=== PATIENT | female | born 1955 | race Caucasian/White ===

== ENCOUNTER → 2024-03-22 12:03 | Outpatient (REF) | payer MEDICARE, OTHER, SELFPAY | LOC: PAVMRI 12:03 | PROVIDERS: ATTENDING PHYSICIAN Orthopaedic Surgery | DX: M25.561 Pain in right knee (principal) | CPT/HCPCS: 73721 ==

== ENCOUNTER 2024-08-01 07:02 | Inpatient (IN) | payer MEDICARE, OTHER, SELFPAY ==
[2024-07-10 13:32] LABS: Hematocrit 37.4 % (37.0-47.0); Hemoglobin 12.9 g/dL (12.0-16.0); Mean Corp Hgb Conc. 34.5 g/dL (33.0-37.0); Mean Corpuscular Volume 92.8 fL (81.0-99.0); Mean Platelet Volume 10.3 fL (7.4-10.4); Platelet Count 243 10^3/uL (130-400); Red Blood Cell Count 4.03 10^6/uL (4.20-5.40); Red Cell Dist. Width 12.7 % (11.5-14.5)
[2024-07-10 13:54] VITALS: BMI 31.6
[2024-07-10 13:54] LABS: ALT (SGPT) 25 U/L (0-35); AST (SGOT) 28 U/L (14-36); Albumin 4.2 g/dl (3.5-5.0); Alkaline Phosphatase 63 U/L (38-126); Blood Urea Nitrogen 23 mg/dl (7-17); Carbon Dioxide 27 mmol/L (22-30); Chloride 104 mmol/L (98-107); Glucose 96 mg/dl (70-99); Potassium 4.7 mmol/L (3.5-5.1); Sodium 139 mmol/L (135-145); Total Bilirubin 0.3 mg/dl (0.2-1.3); eGFR > 60.00
[2024-07-10 14:10] LABS: Glycohemoglobin (HgbA1c) 5.7 % (4.0-5.6)
--- NOTE | 2024-07-27 13:26 | VNURNOTE ---
Patient is scheduled for an elective R TKR on 08/01/[address] Muñiz. Spoke with patient prior to surgery via telephone. Introduced role of [facility] Liaison.
Patient states she will be obtaining rolling walker in hospital. She confirms she has a raised toilet seat. She lives alone. Her son and daughter will assist at home for a few days post-op.
Difficult to complete entire assessment as patient was at the [facility].
PCP is Dr Jerardo Dhaliwal.
Discussed orthopedic program and post surgical plans. Reviewed anticipated length of stay and that goal is for her to return home at discharge. Patient will receive [facility] nursing, PT, OT in the home, this was confirmed with Juliette Malhotra at [facility].
Patient is in agreement with plan. Referral placed in [facility].
Plan: [facility], outpt PT TBD
[2024-07-30 12:16] VITALS: BMI 31.6
[2024-08-01] VITALS (15 sets, daily range): BP systolic 107–135; BP diastolic 56–76; PULSE 78; O2SAT 96
[2024-08-01] MEDS: NORMOSOL-R/PLASMALYTE-A 1000 IV (07:51)
[2024-08-01] MEDS: CELEBREX 200 MG PO (07:52)
[2024-08-01] MEDS: TYLENOL 650 MG PO ×2 (07:52→18:16)
[2024-08-01] MEDS: BACTROBAN NASAL 1 GRAM NASAL (07:52)
--- NOTE | 2024-08-01 10:55 | W.DS.TRANS ---
Addendum entered and electronically signed by Connie Su PA-C 08/01/24 11:58:
DVT Prophylaxis will be Warfarin 1mg nightly per TV
D/C Eliquis Rx
Original Note:
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
-
Discharge Instructions:
Sleep Apnea Risk Low
Discharge Diagnosis/Procedures R TKA Dr. Muñiz 08/01/24
Diet Diabetic, Carb Controlled
Activity With Walker
Driving Restrictions No driving
Bathing Restrictions OK to Shower
Other Services PT
Instructions:
Stand-Alone Forms: Total Hip/Knee Replacement D/C
Changes to Home Medications: Yes
Discharge Medications:
DC Medications w/original date entered in [employer]
aluminum-mag hydroxide-simethicone 200 mg-200 mg-20 mg/5 mL oral susp (Mag-Al Plus) 30 ml PO QIDPRN PRN indigestion ##20 09/14/17
Lactobacil.acidophilus-Bifido.animalis 5 billion cell sprinkle capsule (Probiotic) 1 cap PO DAILY 07/25/24
doxycycline monohydrate 50 mg capsule 50 mg PO DAILY 07/25/24
multivitamin 1 tab PO DAILY 07/25/24
mupirocin 2 % ointment topical kit 1 applic topical BID 07/25/24
acetaminophen 325 mg capsule (Tylenol) 650 mg (2 x 325 mg) PO QID #2 caps 08/01/24
apixaban 2.5 mg tablet (Eliquis) 2.5 mg PO BID Blood clot prevention/tx #60 tabs 08/01/24
dexamethasone 4 mg tablet 4 mg PO BID inflammation #6 tabs 08/01/24
docusate sodium 100 mg capsule (Colace) 100 mg PO BID stool softner #1 cap 08/01/24
magnesium hydroxide 400 mg/5 mL oral suspension (Milk of Magnesia) 30 ml PO HS PRN Constipation #1 mL 08/01/24
ondansetron 4 mg disintegrating tablet 4 mg PO Q6H PRN n/v #20 tabs 08/01/24
oxycodone 5 mg tablet 5 mg PO Q6H PRN 1 tab moderate pain, 2 tabs severe pain #30 tabs 08/01/24
pantoprazole 20 mg tablet,delayed release (Protonix) 20 mg PO DAILY GI prophylaxis #1 tab 08/01/24
sennosides 8.6 mg tablet (Senokot) 17.2 mg (2 x 8.6 mg) PO BID laxative #2 tabs 08/01/24
Home Medication Changes
apixaban 2.5 mg tablet (Eliquis) 2.5 mg PO BID Blood clot prevention/tx #60 tabs 08/01/24�
dexamethasone 4 mg tablet 4 mg PO BID inflammation #6 tabs 08/01/24�
ondansetron 4 mg disintegrating tablet 4 mg PO Q6H PRN n/v #20 tabs 08/01/24�
oxycodone 5 mg tablet 5 mg PO Q6H PRN 1 tab moderate pain, 2 tabs severe pain #30 tabs 08/01/24�
pantoprazole 20 mg tablet,delayed release (Protonix) 20 mg PO DAILY GI prophylaxis #1 tab 08/01/24�
Pending Results: No
[2024-08-01] MEDS: ROXICODONE 5 MG PO (12:14)
--- NOTE | 2024-08-01 12:22 | W.DS.TRANS ---
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
-
Discharge Instructions:
Sleep Apnea Risk Low
Discharge Diagnosis/Procedures R TKA Dr. Muñiz 08/01/24
Diet Diabetic, Carb Controlled
Activity With Walker
Driving Restrictions No driving
Bathing Restrictions OK to Shower
Other Services PT
Instructions:
Stand-Alone Forms: Total Hip/Knee Replacement D/C
Changes to Home Medications: Yes
Discharge Medications:
DC Medications w/original date entered in [email or web address]
aluminum-mag hydroxide-simethicone 200 mg-200 mg-20 mg/5 mL oral susp (Mag-Al Plus) 30 ml PO QIDPRN PRN indigestion ##20 09/14/17
Lactobacil.acidophilus-Bifido.animalis 5 billion cell sprinkle capsule (Probiotic) 1 cap PO DAILY 07/25/24
doxycycline monohydrate 50 mg capsule 50 mg PO DAILY 07/25/24
multivitamin 1 tab PO DAILY 07/25/24
mupirocin 2 % ointment topical kit 1 applic topical BID 07/25/24
acetaminophen 325 mg capsule (Tylenol) 650 mg (2 x 325 mg) PO QID #2 caps 08/01/24
apixaban 2.5 mg tablet (Eliquis) 2.5 mg PO BID Blood clot prevention/tx #60 tabs 08/01/24
dexamethasone 4 mg tablet 4 mg PO BID inflammation #6 tabs 08/01/24
docusate sodium 100 mg capsule (Colace) 100 mg PO BID stool softner #1 cap 08/01/24
magnesium hydroxide 400 mg/5 mL oral suspension (Milk of Magnesia) 30 ml PO HS PRN Constipation #1 mL 08/01/24
ondansetron 4 mg disintegrating tablet 4 mg PO Q6H PRN n/v #20 tabs 08/01/24
oxycodone 5 mg tablet 5 mg PO Q6H PRN 1 tab moderate pain, 2 tabs severe pain #30 tabs 08/01/24
pantoprazole 20 mg tablet,delayed release (Protonix) 20 mg PO DAILY GI prophylaxis #1 tab 08/01/24
sennosides 8.6 mg tablet (Senokot) 17.2 mg (2 x 8.6 mg) PO BID laxative #2 tabs 08/01/24
Home Medication Changes
apixaban 2.5 mg tablet (Eliquis) 2.5 mg PO BID Blood clot prevention/tx #60 tabs 08/01/24�
dexamethasone 4 mg tablet 4 mg PO BID inflammation #6 tabs 08/01/24�
ondansetron 4 mg disintegrating tablet 4 mg PO Q6H PRN n/v #20 tabs 08/01/24�
oxycodone 5 mg tablet 5 mg PO Q6H PRN 1 tab moderate pain, 2 tabs severe pain #30 tabs 08/01/24�
pantoprazole 20 mg tablet,delayed release (Protonix) 20 mg PO DAILY GI prophylaxis #1 tab 08/01/24�
Pending Results: No
--- NOTE | 2024-08-01 14:30 | PTCARENOTE ---
Pt received from the PACU via stretcher. Transport was w/o incident. Pt is AAOx3, HR sl irregular, 70 apically. Lungs are clear, resp. easy. Pulse ox 98%RA. Pt's Right knee with a Prima seal dressing C/D/I, no drainage noted at this time. VSS, Pt is
afebrile. Pt reports pain as min. presently and denies nausea. Pt instructed on plan of care. Pt verbalized understanding of instructions. Call cortés is within reach.
[2024-08-01] MEDS: TYLENOL PO (18:12)
[2024-08-01] MEDS: ANCEF 5 IV (18:15)
[2024-08-01] MEDS: ROXICODONE 10 MG PO (18:16)
[2024-08-01] MEDS: FLOMAX 0.4 MG PO (18:28)
[2024-08-01] MEDS: BACTROBAN 2% OINTMENT 1 APPLIC NASAL (21:49)
[2024-08-01] MEDS: SENOKOT 17.2 MG PO (21:50)
[2024-08-01] MEDS: COLACE 100 MG PO (21:50)
[2024-08-01] MEDS: ELIQUIS 2.5 MG PO (21:50)
[2024-08-01] MEDS: NEURONTIN 300 MG PO (21:50)
[2024-08-01] MEDS: DECADRON 4 MG PO (21:51)
[2024-08-02] MEDS: TYLENOL 650 MG PO ×4 (00:04→11:59)
[2024-08-02] MEDS: ANCEF 5 IV (01:09)
[2024-08-02] MEDS: MAALOX 30 ML PO (01:19)
[2024-08-02 03:06] VITALS: BP 120/82
[2024-08-02] MEDS: ROXICODONE 5 MG PO ×2 (06:02→13:12)
[2024-08-02 07:13] VITALS: BP 124/52
[2024-08-02] MEDS: SENOKOT 17.2 MG PO (08:03)
[2024-08-02] MEDS: COLACE 100 MG PO (08:03)
[2024-08-02] MEDS: ELIQUIS 2.5 MG PO (08:03)
[2024-08-02] MEDS: DECADRON 4 MG PO (08:03)
[2024-08-02] MEDS: BACTROBAN 2% OINTMENT 1 APPLIC NASAL (08:04)
[2024-08-02 10:14] VITALS: BP 114/61; BP 126/62; PULSE 81; O2SAT 96
[2024-08-02] MEDS: FLUSH (NSS) 2 FLUSH IV (10:35)
[2024-08-02] MEDS: ZOFRAN 4 MG IV (10:35)
[2024-08-02 10:44] VITALS: BP 133/58; PULSE 76; O2SAT 95
[2024-08-02 10:50] VITALS: BP 129/59
--- NOTE | 2024-08-02 11:16 | W.PN.ORTHO ---
Today's Communication / Plan
-
d/c
Assessment
.
Distal Motor Intact: Yes
Dressing:
Clean, dry and intact.
Plan
.
Surgery / Date: Josue Muñiz 08/01/24
DVT Prophylaxis: Other (Eliquis)
Activity:
Out of bed.
PT/OT
Discharge Plan: Home w/ Outpatient PT
Subjective
.
.:
Patient resting comfortably.
Vital Signs and Labs
.
Vital Signs and Labs:
Lab Results
07/10/24 12:48
07/10/24 12:48
Temp Pulse Resp BP Pulse Ox
98 F 72 15 129/59 94
08/02/24 10:50 08/02/24 10:50 08/02/24 10:50 08/02/24 10:50 08/02/24 10:50
Non-invasive Hgb result: 14.1
Physical Exam
-
HEENT: No pallor, cyanosis, or jaundice. Throat clear.
NECK: Supple. No JVD.
RESPIRATORY: Lungs clear to auscultation.
CVS: S1, S2 normal. RRR.� No murmur, rub or gallop.
ABDOMEN: Soft, non-tender. No distension. BS+/normal.
EXTREMITIES: strength equal, no calf pain with palpation
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 No focal deficits. 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
--- NOTE | 2024-08-02 15:25 | CM ---
met with patient at bedside.patient lives alone in [place] with 3 fausto.her bed and bath is on the first level,she amb i and is i with her adl.she has no poa but daughter is a nurse.she has had a vn in past after surgery and has no hx of ip
rehab.
her pcp is dr ramon and she uses [facility].
patient is adm with [facility] and is sp right tka.she was seen by therapy who recommended home pt.patient is requesting vn and home pt.referral made to vn.patient signed imm letter,Plan:[facility]daughter to transport home.
== END 2024-08-02 14:27 | disposition home health service (06) | DRG 470 ==
LOC: 2 SOUTH 07:02
PROVIDERS: ADMITTING PHYSICIAN Orthopaedic Surgery; FAMILY PHYSICIAN Internal Medicine
PROC: 0SRC0J9 Replacement of Right Knee Joint with Synthetic Substitute, Cemented, Open Approach (ICD-10-PCS; 2024-08-01)
DX: M17.11 Unilateral primary osteoarthritis, right knee (principal); K21.9 Gastro-esophageal reflux disease without esophagitis; L71.9 Rosacea, unspecified; M79.7 Fibromyalgia; Z88.6 Allergy status to analgesic agent
CPT/HCPCS: 36415; 73560; 80053; 83036; 85027; 87070; 93005; 97110; 97116; 97162; 97166; 97530; 97535; C1713; C1776

== ENCOUNTER → 2025-01-16 07:38 | Outpatient (REF) | payer MEDICARE, OTHER, SELFPAY ==
[2025-01-16 10:07] LABS: Erythrocyte Sed Rate 9 mm/hour (0-20)
== END ==
LOC: RAD 07:38
PROVIDERS: ATTENDING PHYSICIAN Orthopaedic Surgery; FAMILY PHYSICIAN Internal Medicine
DX: Z96.651 Presence of right artificial knee joint (principal); M25.561 Pain in right knee
CPT/HCPCS: 36415; 76882; 85652; 86140